=== PATIENT | female | born 1955 | race African-American/Black ===

== ENCOUNTER 2016-04-11 11:50 | Inpatient (IN) | payer MEDICAID ==
[~2016-04-11] VITALS: Ht 162.6 cm; Wt 76.4 kg
--- NOTE | ~2016-04-11 | EKG ---
[address] [place] [address] ELECTROCARDIOGRAM REPORT Name: FERNANDEZ ALEX Room #: 170-16 ADM IN M.R.#: [id number] Admission: 04/11/16 Attend Phys: Ramon Mckinney MD Discharge: Date of : 59 Report #: [id number] THIS REPORT FOR: //name// [facility] ED Test Date: 2016-04-11 Test Time: 16:46:28 Pat Name: FERNANDEZ ALEX Department: Room: 170 Gender: F Nip Wrapper: [id number] : 1955 Requested By: Hitesh Burr Order Number: [id number] MD: Bryan Bolden Measurements Intervals [place] Rate: 95 P: 24 SC: 124 QRS: -20 QRSD: 99 T: 3 QT: 423 QTc: 532 Interpretive Statements Sinus rhythm Probable left ventricular hypertrophy Inferior infarct, old No previous ECG available for comparison Electronically Signed On 04-11-2016 17:18:45 [employer] by Bryan Bolden [email or web address] <ELECTRONICALLY SIGNED> By: Bryan Bolden MD 04/11/16 1718 45 45 Bryan Bolden MD /LEWIS
--- NOTE | ~2016-04-11 | EKG ---
[address] [place] [address] ELECTROCARDIOGRAM REPORT Name: FERNANDEZ ALEX Room #: 170-16 ADM IN M.R.#: [id number] Admission: 04/11/16 Attend Phys: Ramon Mckinney MD Discharge: Date of : 59 Report #: [id number] THIS REPORT FOR: //name// [facility] ED Test Date: 2016-04-11 Test Time: 13:06:45 Pat Name: FERNANDEZ ALEX Department: Room: 170 Gender: F Tool Crib Attendant: [id number] : 1955 Requested By: Angel Costa Order Number: [id number] MD: Bryan Bolden Measurements Intervals [place] Rate: 106 P: 22 HI: 116 QRS: -19 QRSD: 96 T: 16 QT: 404 QTc: 537 Interpretive Statements Sinus tachycardia Probable left ventricular hypertrophy Inferior infarct, old No previous ECG available for comparison Electronically Signed On 04-11-2016 17:07:51 [employer] HE[employer] LEADER by Bryan Bolden [email or web address] <ELECTRONICALLY SIGNED> By: Bryan Bolden MD 04/11/16 1707 05 05 Bryan Bolden MD /LEWIS
--- NOTE | ~2016-04-11 | H ---
[facility] [place] [address] HISTORY AND PHYSICAL Name: FERNANDEZ ALEX Room #: 456-P ADM IN M.R.#: [id number] Admission: 04/11/16 Attend Phys: Ramon Mckinney MD Discharge: Date of : 59 Report #: [id number] THIS REPORT FOR: //name// CC: Ramon HANSENU DATE OF SERVICE: 04/11/2016 CHIEF COMPLAINT: Nausea, vomiting and abdominal pain. HISTORY OF PRESENT ILLNESS: The patient is a 60-year-old female, who has a history of diabetes with gastroparesis, who reports multiple admissions for intractable nausea and vomiting. She states she started yesterday morning at 5:00 a.m. with vomiting. She has been vomiting incessantly since then. She feels pressure in her chest when she vomits. She had similar symptoms about 3-4 months ago. She does have a primary care doctor who treats her for this with oral medications. Symptoms unfortunately become intractable. PAST MEDICAL HISTORY: Significant for: 1. Diabetes mellitus, insulin requiring. 2. Gastroparesis. 3. Hypertension. 4. Fibromyalgia. 5. Neuropathy. 6. Rotator cuff tear. MEDICATIONS: Include gabapentin 300 mg b.i.d. and 600 mg at bedtime, NovoLog 15 units with meals, Colace 100 mg b.i.d., Pepcid 20 mg b.i.d., MiraLax 17 g a day, Zofran 4 mg p.r.n., Reglan 10 mg p.r.n., lorazepam 1 mg p.r.n., Benicar HCTZ 40/25 one daily, Levemir 44 units at bedtime, Phenergan 25 mg p.r.n. and hydrocodone p.r.n. pain. ALLERGIES: CODEINE, LATEX, NICKEL AND SULFA. SOCIAL HISTORY: Nonsmoker, nondrinker. No recreational drugs. Lives independently. REVIEW OF SYSTEMS: CONSTITUTIONAL: No fever or chills. HEENT: No headaches or visual changes. CHEST: No chest pain, tightness in chest, short of breath, cough or sputum production. GASTROINTESTINAL: Per above. No diarrhea. GENITOURINARY: No burning or frequency. EXTREMITIES: No complaints. [address] [address] HISTORY AND PHYSICAL Name: FERNANDEZ ALEX WHITERIVER Room #: [address] [place] [address] IN M.R.#: [id number] Admission: 04/11/16 Attend Phys: Ramon Mckinney MD Discharge: Date of : 59 Report #: [id number] PHYSICAL EXAMINATION: VITAL SIGNS: In the ER, blood pressure is 145/86, pulse is 118 and respirations 22. She is afebrile. She is on 2 L of O2, O2 sat is 98%. GENERAL: She is now finally comfortable after multiple doses of medications for the vomiting. HEENT: Her mucous membranes are dry. NECK: Supple. No adenopathy, thyromegaly or bruits. CHEST: Clear to auscultation. CARDIOVASCULAR: Regular, without murmur. ABDOMEN: Soft, mildly tender. No rebound or guarding. Bowel sounds are present. EXTREMITIES: Show no edema. LABORATORY DATA: EKG showed sinus tachycardia with a rate of 106. No ST-segment changes. CT scan of the abdomen shows possible ____ colitis, no mass or obstructions. Sodium 132 ____, potassium 2.9, chloride 92, bicarbonate is 22, BUN is 29, creatinine is 1.4 and glucose is 334. AST 30, ALT 24 and alkaline phosphatase 147. WBC is 21.4, platelet count 504, hemoglobin 13.5 and hematocrit 39.3. ASSESSMENT: 1. Intractable nausea and vomiting. 2. Acute kidney injury. 3. Dehydration. 4. Gastroparesis. 5. Hyperglycemia. 6. Diabetes mellitus. 7. Hypocalcemia. 8. Hyponatremia. 9. Leukocytosis. PLAN: We will admit, start on IV fluids. I am going to do a followup KUB. She may have a mild colitis triggering these symptoms. We are going to do Cipro 500 b.i.d. as well. We will follow up with lab after we hydrate her as well. <ELECTRONICALLY SIGNED> By: Ramon Mckinney MD 04/12/16 1307 1703 [id number] Ramon Mckinney MD /nt
[~2016-04-11 11:50] MED LIST: ATIVAN1 MG PO; BENICAR HCT 401 EAC1 PO; COLACE100 MG PO; COMPAZINE10 M2 PO; HYDROCODONE-APA1 TA1 PO; LEVEMIR SUBQ; MIRALAX17 GM PO; NEURONTIN 300300 M1; NOVOLOG100 UNIT/1 SUBQ; ONDANSETRON HCL4 M2 PO; PEPCID20 MG PO; REGLAN 10 MG TA10 MG PO; TRANSDERM-SCO1 PATC1 TRANSDERM
[2016-04-11 11:51] VITALS: BP 145/86
[2016-04-11] MEDS ORDERED: PHENERGAN 25 MG25 M1 PO (12:32)
[2016-04-11] MEDS ORDERED: NORCO 10-325 T1 EACH PO (12:34)
[2016-04-11 12:43] LABS: HEMATOCRIT 39.3 % (37.0-47.0); HEMOGLOBIN 13.5 gm/dL (12.0-15.0); MCHC 34.4 % (28.0-37.0); MCV 87.2 fL (80.0-100.0); PLATELET COUNT 504 thou/uL (150-400); RBC 4.51 mil/uL (4.20-5.00); RDW 13.5 % (10.5-14.5); WBC 21.4 thou/uL (4.0-11.0)
[2016-04-11 12:45] LABS: MANUAL DIFF YES
[2016-04-11 12:51] LABS: CALCIUM 9.6 mg/dL (8.5-10.1); CREATININE 1.4 mg/dL (0.6-1.3)
[2016-04-11 12:57] LABS: ALBUMIN 3.8 g/dL (3.4-5.0); TOTAL BILIRUBIN 0.7 mg/dL (<0.1-1.0); TOTAL PROTEIN 7.8 g/dL (6.4-8.2)
[2016-04-11 12:58] LABS: POTASSIUM 2.9 mmol/L (3.5-5.1)
[2016-04-11 13:10] LABS: ABSOLUTE NEUTROPHILS 16.9 thou/uL (1.4-8.2); PLATELET ESTIMATE NORMALN; TOTAL CELL COUNT 100
[2016-04-11 17:32] LABS: URINE BLOOD 2+ (Negative); URINE COLOR YELLOW; URINE GLUCOSE-RANDOM* TRACE (Negative); URINE KETONES 1+ (Negative); URINE NITRITE NEGATIVE (Negative); URINE PROTEIN (DIPSTICK) 3+ (Negative); URINE UROBILINOGEN 0.2 E.U./dl (0.2-1.0)
[2016-04-11 17:37] LABS: ICTOTEST (BILI CONFIRMATORY) Negative (Negative); URINE BILIRUBIN NEGATIVE (Negative)
[2016-04-11 17:41] LABS: BACTERIA 1-9 Few /HPF (None Seen); CRYSTALS None Seen /LPF (None Seen); FINE GRANULAR CASTS 0-3 Few /LPF (None Seen); SQUAMOUS 4-10 Moderate /LPF (0-3); URINE RBC 3-10 Few /HPF (0-2); URINE WBC 0-5 Rare /HPF (0-5)
[2016-04-11 19:54] VITALS: BP 168/97
[2016-04-11 23:36] VITALS: BP 168/94
[2016-04-12 04:46] VITALS: BP 183/97
[2016-04-12 06:03] LABS: CALCIUM 8.3 mg/dL (8.5-10.1); CREATININE 0.9 mg/dL (0.6-1.3); TOTAL BILIRUBIN 0.4 mg/dL (<0.1-1.0); TOTAL PROTEIN 6.4 g/dL (6.4-8.2)
[2016-04-12 08:01] LABS: HEMATOCRIT 34.8 % (37.0-47.0); HEMOGLOBIN 11.6 gm/dL (12.0-15.0); MCH 29.7 pg (26.0-34.0); MCHC 33.5 % (28.0-37.0); MCV 88.6 fL (80.0-100.0); RBC 3.93 mil/uL (4.20-5.00); RDW 13.7 % (10.5-14.5); WBC 15.8 thou/uL (4.0-11.0)
[2016-04-12 08:39] VITALS: BP 190/102
[2016-04-12 11:05] VITALS: BP 168/82
[2016-04-12 11:59] VITALS: BP 151/92
[2016-04-12 15:44] VITALS: BP 152/82
[2016-04-12 19:58] VITALS: BP 135/64
[2016-04-12 21:12] LABS: MAGNESIUM 1.5 mg/dL (1.8-2.4)
[2016-04-13 04:09] VITALS: BP 151/75
[2016-04-13 08:40] VITALS: BP 155/77
[2016-04-13 09:16] LABS: HEMATOCRIT 31.3 % (37.0-47.0); HEMOGLOBIN 10.6 gm/dL (12.0-15.0); MCH 30.1 pg (26.0-34.0); MCHC 33.8 % (28.0-37.0); MCV 89.1 fL (80.0-100.0); RBC 3.51 mil/uL (4.20-5.00); RDW 13.2 % (10.5-14.5)
[2016-04-13 09:28] LABS: CALCIUM 8.3 mg/dL (8.5-10.1); CREATININE 0.8 mg/dL (0.6-1.3); POTASSIUM 3.1 mmol/L (3.5-5.1)
[2016-04-13 11:45] VITALS: BP 142/66
[2016-04-13 16:15] VITALS: BP 140/72
[2016-04-13 20:47] VITALS: BP 106/61
[2016-04-14 04:13] VITALS: BP 149/66
[2016-04-14 05:39] LABS: MCH 29.9 pg (26.0-34.0); MCHC 33.2 % (28.0-37.0); MCV 90.1 fL (80.0-100.0); RBC 3.34 mil/uL (4.20-5.00); RDW 13.4 % (10.5-14.5); WBC 13.8 thou/uL (4.0-11.0)
[2016-04-14 06:19] LABS: CALCIUM 8.2 mg/dL (8.5-10.1); CREATININE 0.8 mg/dL (0.6-1.3); POTASSIUM 3.1 mmol/L (3.5-5.1)
[2016-04-14 08:40] VITALS: BP 137/71
[2016-04-14] MEDS ORDERED: CIPRO500 MG PO (11:25)
[2016-04-14] MEDS ORDERED: LACTINEX CHEWA1 EACH PO (11:25)
[2016-04-14 11:50] VITALS: BP 137/71
== END 2016-04-14 13:20 | disposition home or self-care (01) | DRG 871 ==
LOC: ER 11:50 → EROBS 16:31 → 4W 16:31
PROVIDERS: Family Medicine; Physician Assistant
DX: A41.9 Sepsis, unspecified organism (principal); N17.0 Acute kidney failure with tubular necrosis; E87.1 Hypo-osmolality and hyponatremia; K52.9 Noninfective gastroenteritis and colitis, unspecified; I10 Essential (primary) hypertension; E11.42 Type 2 diabetes mellitus with diabetic polyneuropathy; E11.43 Type 2 diabetes mellitus with diabetic autonomic (poly)neuropathy; K31.84 Gastroparesis; E86.0 Dehydration; E11.65 Type 2 diabetes mellitus with hyperglycemia; E87.6 Hypokalemia; E83.51 Hypocalcemia; M79.7 Fibromyalgia; Z88.2 Allergy status to sulfonamides; Z88.6 Allergy status to analgesic agent; Z91.040 Latex allergy status; Z79.4 Long term (current) use of insulin; Z90.710 Acquired absence of both cervix and uterus
CPT/HCPCS: 10045